=== PATIENT | male | born 1960 ===

== ENCOUNTER 2016-05-21 11:10 | Inpatient (IN) ==
[2016-05-21] MEDS ORDERED: ACETAMINOPHEN 325 MG TABLET PO PRN (11:30)
[2016-05-21] MEDS ORDERED: ONDANSETRON 4 MG/2 ML VIAL IV PRN (11:30)
[2016-05-21] MEDS ORDERED: DEXTROSE 50% 25 GM/50 ML VIAL IV PRN ×2 (11:30)
[2016-05-21] MEDS ORDERED: GLUCAGON 1 MG VIAL IM PRN ×2 (11:30)
--- NOTE | 2016-05-21 11:45 | Nephrology History & Physical ---
History of Present Illness Chief complaint: End stage renal disease History of present illness: Mr. Montero is a 55 year old male with history of End stage renal disease due to HTN and diabetes. The patient had a AV fistula placed by Dr. Erum RUEDA in March. Today, in clinic, the patient mentioned feeling shortness of breath as well as nausea and vomiting. He is also feeling very tired. No chest pain reported. The patient is now being admitted to initiate dialysis. No history of fevers or chills. No other changes in his medicines. Review of Systems Constitutional: anorexia, fatigue, no fever(s) Nose, mouth and throat: no dysphagia, no epistaxis Cardiovascular: dyspnea, no as per HPI, no chest pain with activity Respiratory: dyspnea Gastrointestinal: nausea, no constipation Genitourinary: no difficulty urinating, no dysuria Medical,Surgical,& Family Hx - Medical History Endocrine: History of: Diabetes Mellitus (NIDDM) Hematology: History of: Anemia Exam - Nephrology - General Appearance General appearance: well-developed, well-nourished, fatigue EENT: ATNC, PERRL, mucous membranes moist Neck: no carotid bruit, supple Respiratory: clear Cardiology: no edema, regular rate, regular rhythm Gastrointestinal: normoactive bowel sounds, no tenderness, no guarding, no organomegaly Integumentary: no rash Neurologic: alert and oriented x3, reflexes 2+ and symmetric, CN 3-12 intact Musculoskeletal: no deformities, no erythema, no cyanosis Psychiatric: mood/affect appropriate Additional exam: AV fistula in the right upper arm, positive bruit Assessment and Plan - Time spent with patient Time spent with patient: Less than 30 minutes (1) End stage renal disease Status: Acute Assessment and plan: Initiating dialysis today. Fistula in place (2) Anemia Status: Chronic Qualifiers: Anemia type: iron deficiency (3) Diabetes Status: Chronic Qualifiers: Diabetes mellitus type: type 2 Diabetes mellitus complication status: with kidney complications Chronic kidney disease stage: on chronic dialysis
[2016-05-21 12:56] LABS: Basophils % 0.6 % (0.0-0.8); Eosinophils # 0.3 10*3/uL (0.0-0.87); Eosinophils % 5.6 % (0.00-10.9); Hematocrit 25.8 VOL% (42.0-52.0); Hemoglobin 8.2 GM/DL (14.0-18.0); Immature Granulocytes % 0.4 %; Immature Granulocytes Absolute 0.02 #; Lymphocytes % 20.2 % (21.2-54.2); Mean Corpuscular HGB Conc 31.8 GM/DL (32-36); Mean Corpuscular Hemoglobin 28 PG (27-34); Mean Corpuscular Volume 88.7 FL (87-102); Mean Platelet Volume 9.4 FL (9.6-12.0); Monocytes # 0.6 10*3/uL (0.11-0.8); Monocytes % 11.4 % (1.7-12.7); Neutrophils # 3.1 10*3/uL (1.4-7.4); Neutrophils % 61.8 % (38.7-73.9); Platelet Count 300 T/CUMM (130-400); Red Blood Count 2.91 MC/CUMM (3.8-5.5); Red Cell Distribution Width 13.7 % (9.3-17.3)
[2016-05-21 13:38] LABS: Albumin 2.9 G/DL (3.4-5.0); Calcium 6.3 MG/DL (8.5-10.1); Osmolality,Calculated 321.6 MOS/KG (273-304); Phosphorous 8.5 MG/DL (2.5-4.9); Potassium 4.5 MMOL/L (3.5-5.1)
[2016-05-21] MEDS: INSULIN REGULAR 100 UNIT/ML SUBCUT SCH ×3 (14:25→20:04)
[2016-05-21] MEDS: SODIUM CHLORIDE 0.45% 1,000 ML IV SCH (14:26)
--- NOTE | 2016-05-21 15:09 | Dialysis Note ---
Dialysis Note - Dialysis Note Patient is seen on dialysis he is tolerating the procedure. Blood pressure noted to be 124/70. Fistula is working appropriately. At this time we will dialyze for 2 hours today and plan for dialysis on tomorrow.
[2016-05-21 15:46] LABS: Hepatitis A Ab IgM Quant 0.19 Index; Hepatitis A Ab IgM Result Negative (Negative); Hepatitis B Core IgM Quant 0.19 Index; Hepatitis B Core IgM Result Negative (Negative); Hepatitis B Surface Ag Quant < 0.10 Index; Hepatitis B Surface Ag Result Negative (Negative); Hepatitis C Virus Ab Quant 0.14 Index; Hepatitis C Virus Ab Result Negative (Negative)
[2016-05-21] MEDS: ENOXAPARIN 30 MG/0.3 ML SYRINGE SUBCUT SCH (18:34)
[2016-05-22 06:01] LABS: Basophils % 0.5 % (0.0-0.8); Eosinophils # 0.1 10*3/uL (0.0-0.87); Eosinophils % 1.6 % (0.00-10.9); Hematocrit 27.5 VOL% (42.0-52.0); Hemoglobin 8.7 GM/DL (14.0-18.0); Immature Granulocytes % 0.4 %; Immature Granulocytes Absolute 0.03 #; Lymphocytes % 12.6 % (21.2-54.2); Mean Corpuscular HGB Conc 31.6 GM/DL (32-36); Mean Corpuscular Hemoglobin 28 PG (27-34); Mean Corpuscular Volume 89.9 FL (87-102); Mean Platelet Volume 9.9 FL (9.6-12.0); Monocytes # 0.7 10*3/uL (0.11-0.8); Monocytes % 8.9 % (1.7-12.7); Neutrophils # 6.2 10*3/uL (1.4-7.4); Platelet Count 278 T/CUMM (130-400); Red Blood Count 3.06 MC/CUMM (3.8-5.5); Red Cell Distribution Width 13.5 % (9.3-17.3); White Blood Count 8.2 T/CUMM (4-12)
[2016-05-22 06:26] LABS: Albumin 2.7 G/DL (3.4-5.0); Osmolality,Calculated 305.3 MOS/KG (273-304); Phosphorous 7.9 MG/DL (2.5-4.9); Potassium 4.8 MMOL/L (3.5-5.1)
[2016-05-22] MEDS: INSULIN REGULAR 100 UNIT/ML SUBCUT SCH ×4 (08:57→20:41)
[2016-05-22] MEDS: PANTOPRAZOLE 40 MG TABLET PO SCH (08:57)
--- NOTE | 2016-05-22 09:22 | Nephrology Progress Note ---
Nephrology - PN: Subj Interval history: Patient states he feels better. His appetite is improved. Review of systems pulmonary denies shortness of breath Physical exam general the patient is in no acute distress, he has no pitting edema Assessment/plan 1. End-stage renal disease-patient for second dialysis treatment today 2. Hypertension we will continue his present antihypertensives 3. Diabetes mellitus-continue his present hypoglycemics 4. Anemia-I am going to check iron stores on hemodialysis today and start him on EPO. Exam (PN)-Nephrology - Vital Signs Vital signs: Period Temp Pulse Resp BP Sys/Abreu Pulse Ox Last 24 Hr 97.1 F-98.5 F 66-85 16-18 115-154/67-85 97-100 - Lab 05/22/16 04:43 05/22/16 04:43 Most recent lab results Calcium 7.0 MG/DL (8.5-10.1) L 05/22/16 04:43 Phosphorus 7.9 MG/DL (2.5-4.9) H 05/22/16 04:43
[2016-05-22] MEDS ORDERED: EPOETIN ALFA 2,000 UNIT/1 ML VIAL IV PRN (09:23)
[2016-05-22 12:42] LABS: % Iron Saturation 29.1 % (18-50)
[2016-05-22] MEDS: ENOXAPARIN 30 MG/0.3 ML SYRINGE SUBCUT SCH (14:00)
[2016-05-22] MEDS: SODIUM CHLORIDE 0.45% 1,000 ML IV SCH (14:29)
[2016-05-23 07:24] LABS: Basophils % 0.4 % (0.0-0.8); Eosinophils # 0.3 10*3/uL (0.0-0.87); Eosinophils % 4.6 % (0.00-10.9); Hematocrit 23.2 VOL% (42.0-52.0); Hemoglobin 7.4 GM/DL (14.0-18.0); Immature Granulocytes % 0.7 %; Immature Granulocytes Absolute 0.04 #; Lymphocytes # 1.7 10*3/uL (1.4-4.0); Lymphocytes % 29.6 % (21.2-54.2); Mean Corpuscular HGB Conc 31.9 GM/DL (32-36); Mean Corpuscular Hemoglobin 28 PG (27-34); Mean Corpuscular Volume 88.5 FL (87-102); Mean Platelet Volume 9.9 FL (9.6-12.0); Monocytes # 0.8 10*3/uL (0.11-0.8); Monocytes % 14.1 % (1.7-12.7); Neutrophils # 2.9 10*3/uL (1.4-7.4); Neutrophils % 50.6 % (38.7-73.9); Platelet Count 211 T/CUMM (130-400); Red Blood Count 2.62 MC/CUMM (3.8-5.5); Red Cell Distribution Width 13.3 % (9.3-17.3); White Blood Count 5.7 T/CUMM (4-12)
[2016-05-23] MEDS: PANTOPRAZOLE 40 MG TABLET PO SCH (09:21)
[2016-05-23] MEDS: INSULIN REGULAR 100 UNIT/ML SUBCUT SCH ×3 (09:22→20:38)
[2016-05-23] MEDS: ENOXAPARIN 30 MG/0.3 ML SYRINGE SUBCUT SCH (16:00)
--- NOTE | 2016-05-23 16:05 | Nephrology Progress Note ---
Nephrology - PN: Subj Interval history: Patient is feeling better. He states his appetite is coming back. Review of systems pulmonary denies shortness of breath Physical exam general the patient is in no acute distress Assessment/plan 1. End-stage renal disease-continue hemodialysis support 2. Hypertension this is controlled 3. Diabetes mellitus this is controlled 4. Anemia patient has been started on a p.o. Exam (PN)-Nephrology - Vital Signs Vital signs: Period Temp Pulse Resp BP Sys/Abreu Pulse Ox Last 24 Hr 97.3 F-98.9 F 71-83 16-20 112-133/51-71 99-100 - Lab 05/23/16 06:51 05/22/16 04:43 Most recent lab results Calcium 7.0 MG/DL (8.5-10.1) L 05/22/16 04:43 Phosphorus 7.9 MG/DL (2.5-4.9) H 05/22/16 04:43
[2016-05-23] MEDS: SODIUM CHLORIDE 0.45% 1,000 ML IV SCH (17:52)
[2016-05-24] MEDS: INSULIN REGULAR 100 UNIT/ML SUBCUT SCH ×3 (07:56→17:00)
[2016-05-24] MEDS: PANTOPRAZOLE 40 MG TABLET PO SCH (08:24)
--- NOTE | 2016-05-24 09:02 | Dialysis Note ---
Dialysis Note - Dialysis Note Patient seen on hemodialysis he is tolerating this well will continue his treatment unchanged.
[2016-05-24] MEDS: SODIUM CHLORIDE 0.45% 1,000 ML IV SCH (12:32)
[2016-05-24] MEDS ORDERED: EPOETIN ALFA 2,000 UNIT/1 ML VIAL SUBCUT ONE (14:32)
--- NOTE | 2016-05-24 14:53 | Discharge Summary ---
Hospital Course - Hospital Course Hospital Course: This hospitalization included patient admitted for uremic symptoms and to initiate hemodialysis. Patient had AV fistula that has been placed and was secured and was able to be cannulated. He underwent 3 sessions of hemodialysis and continued to do extremely well. He was initiated on Epogen for his anemia he is continued to do well no shortness of breath or chest pain. Social work was consulted for outpatient hemodialysis and at this time patient will follow with outpatient dialysis at the [place] dialysis unit on a Tuesday schedule at 12:00. At this time is reached maximal hospitalization is prepared for discharge he will follow-up with outpatient hemodialysis in [place]. - Time spent with patient Time with patient DS: Less than 30 minutes Diagnosis - Discharge Diagnosis (1) End stage renal disease Status: Chronic (2) Anemia Status: Chronic (3) Diabetes Status: Chronic Discharge Plan - Discharge Data Disposition: Disch To Home/Self Care Condition at Discharge: Stable Discharge Diet: advance to your usual diet Activity: resume usual activities as tolerated Hygiene: no restrictions Contact your physician if you experience:: fever over 101 - Discharge Medications New Epoetin Barrie [Epogen] 6,000 unit IV WITH DIALYSIS PRN #0 vial PRN Reason: Dialysis Pantoprazole Tab [Protonix Tab] 40 mg PO DAILY #30 tablet Continue Carvedilol [Coreg] 12.5 mg PO BID Calcium Carbonate 600 mg PO TID Insulin Aspart [NovoLOG FlexPen] 3 units SUBCUT BID W/MEALS Hydralazine HCl 100 mg PO TID Discontinued Furosemide Tab [Lasix Tab] 80 mg PO DAILY - Follow Up or Referral - Forms/Instructions Additional Discharge Instructions: Follow-up with [facility] dialysis unit on Tuesday schedule at 12:00. Exam - Constitutional Vitals: Period Temp Pulse Resp BP Sys/Abreu Pulse Ox Last 24 Hr 98.0 F-98.5 F 67-78 15-20 112-146/59-77 96-98 General appearance: normal weight - Head Head exam: Present: normal inspection - Eye Eye exam: Present: EOMI - ENT ENT exam: Present: normal exam - Respiratory Respiratory exam: Present: clear to auscultation bilaterally - Cardiovascular Cardiovascular exam: Present: regular rate and rhythm - GI/Abdominal GI/Abdominal exam: Present: normal bowel sounds - Extremities Exam Extremities exam: Present: full ROM - Neurological Exam Neurological exam: Present: alert, oriented X3, CN II-XII intact - Psychiatric Psychiatric exam: Present: normal affect - Skin Skin exam: Present: normal color Discharge Results Labs on day of discharge: Labs from last 24 hours 05/24/16 05/23/16 05/23/16 07:16 20:33 16:06 POC Glucose 99 120 H 96 DS: Provider Date of admission: 05/21/16 12:17 Primary care physician: Berenice Zimmerman MD Attending physician on admission: Idris Horvath Jr., MD Consults: 05/21/16 11:37 Consult to Case Mgmt/Social Srvs [CONS] Routine Reason for Case Mgmt/Social Srvs: Home Health Rehab Dialysis Discharge Planning 05/21/16 13:23 Consult to Dietitian [CONS] Routine Reason for Dietitian: Other 05/21/16 13:47 Consult to Pharmacy [CONS] Routine Reason for Pharmacy Consult: Adjust Meds Renal Funct Discharging clinician: Idris Horvath Jr., MD
[2016-05-24] MEDS: ENOXAPARIN 30 MG/0.3 ML SYRINGE SUBCUT SCH (15:05)
[2016-05-24 17:08] VITALS: BP 150/80
== END 2016-05-24 17:09 | disposition home or self-care (01) | DRG 468 ==
LOC: N.5E 12:17
PROVIDERS: ADMIT Internal Medicine Nephrology; ATTEND Internal Medicine Nephrology